=== PATIENT | female | born 1955 | race Caucasian/White ===

== ENCOUNTER → 2018-11-19 | Outpatient (CLI) | payer OTHER | LOC: MC.RAD 10-15 08:15 | DX: Z12.31 Encounter for screening mammogram for malignant neoplasm of breast (principal) ==

== ENCOUNTER 2019-09-29 12:51 | Emergency (ER) | payer OTHER ==
[~2019-09-29] VITALS: Ht 162.6 cm; Wt 63.6 kg
[2019-09-29 15:25] VITALS: BP 106/72; PULSE 92; TEMP 98
== END 2019-09-29 15:28 | disposition home or self-care (01) ==
LOC: COL.ER 12:51
DX: S01.81XA Laceration without foreign body of other part of head, initial encounter (principal); M25.572 Pain in left ankle and joints of left foot; R55 Syncope and collapse; Z23 Encounter for immunization; X50.1XXA Overexertion from prolonged static or awkward postures, initial encounter; W19.XXXA Unspecified fall, initial encounter